=== PATIENT | female | born 1955 | race Caucasian/White ===

== ENCOUNTER 2020-01-21 15:12 | Emergency (ER) | payer MEDICAID, MEDICARE ==
[~2020-01-21] VITALS: Ht 160 cm; Wt 88.6 kg
[~2020-01-21 15:12] MED LIST: PRED20TA PO; PSEU-225 PO
[2020-01-21 15:52] VITALS: BP 126/59
[2020-01-21 16:20] LABS: CLARITY,URINE CLOUDY (Clear); COLOR,URINE YELLOW (Yellow); GLUCOSE, URINE NEGATIVE (Neg); KETONES,URINE TRACE mg/dl (Neg); LEUKOCYTE ESTERASE ,URINE MODERATE (Neg); NITRITES, URINE NEGATIVE (Neg); OCCULT BLOOD,URINE LARGE (Neg); PROTEIN,URINE 100 mg/dl (Neg)
[2020-01-21 16:32] LABS: UA COLLECTION TYPE CLN CATCH MIDSTREAM
[2020-01-21 16:42] LABS: SQUAMOUS EPITHELIAL CELL,UR MODERATE /LPF (FEW)
[2020-01-21 16:43] LABS: BACTERIA,URINE 1+ /HPF (Neg); WBC,URINE TNTC /HPF (0-4)
[2020-01-21] MEDS ORDERED: CEPH250T PO (16:48)
== END 2020-01-21 17:06 | disposition home or self-care (01) ==
LOC: ER 15:13
DX: N39.0 Urinary tract infection, site not specified (principal); R31.9 Hematuria, unspecified; E11.9 Type 2 diabetes mellitus without complications; M19.90 Unspecified osteoarthritis, unspecified site; Z86.69 Personal history of other diseases of the nervous system and sense organs; Z98.890 Other specified postprocedural states; Z90.89 Acquired absence of other organs; Z79.899 Other long term (current) drug therapy; Z87.440 Personal history of urinary (tract) infections
CPT/HCPCS: 81001; 87077; 87088; 87186; 99283; 99284

== ENCOUNTER 2024-07-29 11:24 | Outpatient (CLI) | payer MEDICARE ==
--- NOTE | 2024-07-29 14:30 | RADIOLOGY REPORT ---
RENAL ULTRASOUND CLINICAL HISTORY: STRESS INCONTINENCE TECHNIQUE: Multiple grayscale ultrasound images were obtained through the kidneys and urinary bladder . COMPARISON: None FINDINGS: Right kidney: Measures 8.1 x 4.2 x 4.4 cm. No hydronephrosis. Left kidney: Measures 8.7 x 4.5 x 5.8 cm. No hydronephrosis. Urinary bladder: Unremarkable. Prevoid volume is 187 mL and postvoid volume is 11 mL IMPRESSION: 1. Slightly small kidneys without hydronephrosis or nephrolithiasis. 2. Unremarkable urinary bladder.
== END 2024-07-29 23:59 | disposition home or self-care (01) ==
LOC: RAD 11:24
PROVIDERS: ATTEND Family Medicine
DX: N39.3 Stress incontinence (female) (male) (principal)
CPT/HCPCS: 76770